=== PATIENT | male | born 1950 | race Caucasian/White ===

== ENCOUNTER 2017-03-17 10:09 | Emergency (ER) | payer MEDICARE, OTHER ==
[2017-03-17] MEDS ORDERED: AMOX/CLAV 875 MG/125 MG TABLET PO STA (12:26)
--- NOTE | 2017-03-17 12:29 | ED Physician Documentation ---
History of Present Illness - Stated complaint Stated Complaint: R HAND LAC/DOGBITE - Chief complaint Chief Complaint: General - History obtained from History obtained from: Patient - History of Present Illness Timing: How many days ago (2) Pain level max: 3 Pain level now: 3 - Additonal information Additional information: Patient is a 67-year-old gentleman who sustained a dog bite from his pet dog 2 days ago on the right hand. Tetanus is up-to-date. He states he noted redness and swelling starting last night, came for evaluation today. No fevers. No drainage from the hand. Nothing makes it better or worse Review of Systems Constitutional: denies: Fever, Chills Neurologic: denies: Focal weakness, Numbness PD PAST MEDICAL HISTORY - Past Medical History Past Medical History: Yes Neuro: Other Other Past Medical History: Subarachnoid hemmorrhage 6 yrs ago, not due to trauma - Past Surgical History Past Surgical History: Yes - Present Medications Home Medications: Ambulatory Orders Medication Instructions Recorded Confirmed Amox/Clav 875/125 [Augmentin] 1 each PO Q12H #20 tablet 03/17/17 - Allergies Allergies/Adverse Reactions: Allergies Allergy/AdvReac Type Severity Reaction Status Date / Time No Known Drug Allergies Allergy Verified 03/17/17 10:22 - Social History Does the pt smoke?: No Smoking Status: Never smoker Does the pt drink ETOH?: Yes Does the pt have substance abuse?: No - Immunizations Immunizations are current?: Yes - POLST Patient has POLST: Yes PD ED PE NORMAL - Vitals Vital signs reviewed: Yes - General General: Alert and oriented X 3, No acute distress - Derm Derm: Warm and dry - Extremities Extremities: Other (R hand - swelling, erythema to the dorsum of the hand and prox aspects of digits 3-5. no palmar tenderness or swelling. no lypmhangitis. FROM of the hand present.) - Neuro Neuro: Alert and oriented X 3 Results - Vitals Vitals: Vital Signs - 24 hr 03/17/17 10:22 Temperature 37.0 C Heart Rate 91 Respiratory 16 Rate Blood Pressure 157/87 H O2 Saturation 100 Oxygen O2 Source Room air PD MEDICAL DECISION MAKING - ED course Complexity details: considered differential, d/w patient ED course: Patient is a 67-year-old male with a dog bite to the right hand that has become secondarily infected. Will place on Augmentin. Tetanus is up-to-date. No evidence of deep space infection in the hand. No lymphangitis. No fevers. No sepsis. Patient counseled regarding signs and symptoms for which I believe and urgent re-evaluation would be necessary. Patient with good understanding of and agreement to plan and is comfortable going home at this time This document was made in part using voice recognition software. While efforts are made to proofread this document, sound alike and grammatical errors may occur. Departure - Departure Disposition: 01 Home, Self Care Clinical Impression: Cellulitis Qualifiers: Site of cellulitis: extremity Site of cellulitis of extremity: upper extremity Laterality: right Qualified Code(s): L03.113 - Cellulitis of right upper limb Dog bite Qualifiers: Encounter type: initial encounter Qualified Code(s): W54.0XXA - Bitten by dog, initial encounter Condition: Good Instructions: ED Bite Animal General, ED Infec Skin Cellulitis Follow-Up: Adi Martin MD [Primary Care Provider] - Within 3 Days (for wound check) Prescriptions: Amox/Clav 875/125 [Augmentin] 1 each PO Q12H #20 tablet Comments: Take all antibiotics until gone. Return if you worsen. You should start to notice significant improvement by tomorrow. Return immediately for fevers, redness going up the arm or pain in the palm of the hand.
[2017-03-17 12:39] VITALS: BP 158/88
--- NOTE | 2017-03-20 18:03 | ED Physician Documentation ---
ED Addendum - Addendum Addendum: 03/20/17 18:03 Luis called, he had misplaced the medications and needs 13 more pills, I authorize 13 more pills of Augmentin, 1 p.o. twice daily under my name.
== END 2017-03-17 12:38 | disposition home or self-care (01) ==
LOC: ED 10:09
DX: L03.113 Cellulitis of right upper limb (principal)
CPT/HCPCS: 99283; A9270